=== PATIENT | male | born 1955 | race Caucasian/White ===

== ENCOUNTER 2018-01-30 14:05 | Observation (INO) ==
[2018-01-30] MEDS ORDERED: ONDANSETRON 4 MG/2 ML VIAL IV STA (14:26)
[2018-01-30] MEDS ORDERED: HYDROmorphone 2 MG/1 ML VIAL IV STA (14:26)
[2018-01-30] MEDS ORDERED: ONDANSETRON 4 MG/2 ML VIAL ONE ×2 (14:26→18:20)
[2018-01-30] MEDS ORDERED: HYDROmorphone 2 MG/1 ML VIAL ONE (14:26)
[2018-01-30 15:37] LABS: Basophils # 0.1 10*3/uL (0.0-0.2); Basophils % 0.7 % (0.0-0.8); Eosinophils # 0.2 10*3/uL (0.0-0.87); Eosinophils % 1.1 % (0.00-10.9); Hematocrit 40.4 VOL% (42.0-52.0); Immature Granulocytes % 0.5 %; Immature Granulocytes Absolute 0.08 #; Lymphocytes # 2.1 10*3/uL (1.4-4.0); Lymphocytes % 14.4 % (21.2-54.2); Mean Corpuscular HGB Conc 32.2 GM/DL (32-36); Mean Corpuscular Hemoglobin 26 PG (27-34); Mean Corpuscular Volume 81.8 FL (87-102); Mean Platelet Volume 9.8 FL (9.6-12.0); Monocytes # 0.7 10*3/uL (0.11-0.8); Monocytes % 4.8 % (1.7-12.7); Neutrophils # 11.7 10*3/uL (1.4-7.4); Neutrophils % 78.5 % (38.7-73.9); Platelet Count 363 T/CUMM (130-400); Red Blood Count 4.94 MC/CUMM (3.8-5.5); Red Cell Distribution Width 17.4 % (9.3-17.3); White Blood Count 14.9 T/CUMM (4-12)
[2018-01-30 15:46] LABS: INR 0.9; PT Patient Result 9.9 SECS; Partial Thromboplastin Time 24.8 SECS (0-40)
[2018-01-30] MEDS ORDERED: ceFAZolin 2,000 MG in PREMIX 1 EACH IV ONE (15:58)
[2018-01-30 16:08] LABS: Alanine Aminotransferase 30 U/L (16-61); Albumin 3.7 G/DL (3.4-5.0); Alkaline Phosphatase 104 U/L (45-117); Aspartate Amino Transferase 20 U/L (0-37); Bilirubin,Total < 0.39 MG/DL (0.2-1.0); Blood Urea Nitrogen 10 MG/DL (7-18); Calcium 9.2 MG/DL (8.5-10.1); Glucose 114 MG/DL (74-106); Osmolality,Calculated 280.3 MOS/KG (273-304); Sodium 141 MMOL/L (136-145)
[2018-01-30] MEDS ORDERED: MAGNESIUM HYDROXIDE SUSP 30 ML UDCUP PO PRN (16:14)
[2018-01-30] MEDS ORDERED: ACETAMINOPHEN 325 MG TABLET PO PRN (16:14)
[2018-01-30] MEDS ORDERED: MORPHINE 4 MG/1 ML VIAL IV PRN ×2 (16:14)
[2018-01-30] MEDS ORDERED: ceFAZolin 1,000 MG VIAL ONE (16:41)
[2018-01-30] MEDS ORDERED: BUPIVACAINE 0.5% 50 ML VIAL ONE (17:21)
[2018-01-30] MEDS ORDERED: BACITRACIN OINT 0.9 GM PACK TOP ONE (17:26)
[2018-01-30] MEDS ORDERED: SEVOFLURANE 1 UNIT/15 MINUTE INH ONE (18:19)
[2018-01-30] MEDS ORDERED: PROPOFOL 200 MG/20 ML VIAL IV ONE (18:19)
[2018-01-30] MEDS ORDERED: MIDAZOLAM 2 MG/2 ML VIAL ONE (18:20)
[2018-01-30] MEDS ORDERED: NEOSTIGMINE 10 MG/10 ML VIAL ONE (18:20)
[2018-01-30] MEDS ORDERED: SUCCINYLCHOLINE 200 MG/10 ML VIAL ONE (18:20)
[2018-01-30] MEDS ORDERED: ROCURONIUM 100 MG/10 ML VIAL IV ONE (18:20)
[2018-01-30] MEDS ORDERED: PHENYLEPHRINE 10 MG/1 ML VIAL IV ONE (18:20)
[2018-01-30] MEDS ORDERED: LACTATED RINGERS 1,000 ML IV ONE (18:20)
[2018-01-30] MEDS ORDERED: GLYCOPYRROLATE 0.4 MG/2 ML VIAL ONE (18:20)
[2018-01-30] MEDS ORDERED: amLODIPine 10 MG TABLET PO SCH (21:00)
[2018-01-30] MEDS ORDERED: LOVASTATIN 20 MG TABLET PO SCH (21:00)
[2018-01-30] MEDS ORDERED: ASPIRIN EC 81 MG TABLET PO SCH (21:00)
[2018-01-30] MEDS: VENLAFAXINE 75 MG TABLET PO SCH (22:01)
[2018-01-30] MEDS: LACTATED RINGERS 1,000 ML IV SCH (22:03)
[2018-01-31] MEDS: ceFAZolin 2,000 MG in PREMIX 1 EACH IV SCH ×2 (00:08→08:38)
[2018-01-31] MEDS: KETOROLAC 30 MG/1 ML VIAL IV PRN ×2 (00:43→08:48)
[2018-01-31] MEDS: LACTATED RINGERS 1,000 ML IV SCH ×2 (03:30→07:17)
[2018-01-31 03:44] LABS: Basophils # 0.1 10*3/uL (0.0-0.2); Basophils % 0.8 % (0.0-0.8); Eosinophils # 0.1 10*3/uL (0.0-0.87); Eosinophils % 1.2 % (0.00-10.9); Hematocrit 35.8 VOL% (42.0-52.0); Hemoglobin 11.8 GM/DL (14.0-18.0); Immature Granulocytes % 0.2 %; Immature Granulocytes Absolute 0.02 #; Lymphocytes # 2.2 10*3/uL (1.4-4.0); Lymphocytes % 20.9 % (21.2-54.2); Mean Corpuscular Hemoglobin 27 PG (27-34); Mean Corpuscular Volume 80.3 FL (87-102); Mean Platelet Volume 9.9 FL (9.6-12.0); Monocytes # 0.8 10*3/uL (0.11-0.8); Monocytes % 7.6 % (1.7-12.7); Neutrophils # 7.4 10*3/uL (1.4-7.4); Neutrophils % 69.3 % (38.7-73.9); Platelet Count 294 T/CUMM (130-400); Red Blood Count 4.46 MC/CUMM (3.8-5.5); Red Cell Distribution Width 17.7 % (9.3-17.3); White Blood Count 10.6 T/CUMM (4-12)
[2018-01-31 04:11] LABS: Calcium 8.7 MG/DL (8.5-10.1); Potassium 3.7 MMOL/L (3.5-5.1)
[2018-01-31 07:55] VITALS: BP 158/102
[2018-01-31] MEDS: VENLAFAXINE 75 MG TABLET PO SCH (08:38)
== END 2018-01-31 10:30 | disposition home or self-care (01) ==
LOC: EDBD → EDUNIT# → N.ED 14:05 → N.EDINP 14:05 → N.3E 16:05
PROVIDERS: ADMIT Orthopaedic Surgery; ATTEND Orthopaedic Surgery